=== PATIENT | male | born 1990 | race Caucasian/White ===

== ENCOUNTER 2020-12-25 09:38 | Emergency (ER) | payer MEDICARE, MEDICAID ==
[~2020-12-25] VITALS: Ht 175.3 cm; Wt 113.4 kg
[2020-12-25] MEDS ORDERED: HYDROCODON-ACE1 EAC7 PO (11:44)
[2020-12-25 11:55] VITALS: BP 141/70
== END 2020-12-25 11:56 | disposition home or self-care (01) ==
LOC: M.ERS 09:38
DX: S80.02XA Contusion of left knee, initial encounter (principal); S00.83XA Contusion of other part of head, initial encounter; I10 Essential (primary) hypertension; Z98.890 Other specified postprocedural states; Z88.8 Allergy status to other drugs, medicaments and biological substances; Y04.8XXA Assault by other bodily force, initial encounter; Y93.89 Activity, other specified; Y92.89 Other specified places as the place of occurrence of the external cause; Y99.8 Other external cause status